=== PATIENT | female | born 1950 | race Caucasian/White ===

== ENCOUNTER → 2019-01-25 | Day surgery (SDC) | payer MEDICARE, BC ==
[~2019-01-25] MED LIST: ATOR20TA58 PO; CELE200C PO; CHOL10003 PO; ESOM40CA PO; IV RINGERS,LACTATED 1000ML 1,000 ML IV SCH; OXYC1TAB15 PO; Oxycodone Hcl/Acetaminophen PO; PROPOFOL 20 ML IV ONE; SIMV20TA3 PO; WARF-78 PO; Warfarin Sodium MC
[2019-01-25 08:57] VITALS: BP 107/59
--- NOTE | 2019-01-28 14:06 | PATHOLOGY ---
[facility] Accession Number: [id number] . 01 Material submitted: . esophagus - DISTAL ESOPHAGUS. Modifiers: distal . 01 Clinical history: . Perez's esophagus, rule out dysphagia . 02 Diagnosis: Esophageal biopsies, distal esophagus: - Segments of hyperplastic squamous esophageal mucosa and esophagogastric mucosa showing chronic inflammation, consistent with reflux changes. (JPM:pastora; 01/28/2019) QMS/01/28/2019 . 02 Comment: Sections of the distal esophageal biopsy reveal segments of hyperplastic squamous esophageal mucosa and esophagastric mucosa showing moderate chronic inflammation. The findings are consistent with reflux changes. There is no evidence of Perez's change, dysplasia, or malignancy. (JPM:pastora; 01/28/2019) . 02 Electronically signed: . Pernell Boles MD, Pathologist NPI- [id number] . 01 Gross description: . The specimen is received in formalin, labeled "Force, Nallely, distal esophagus", are few faulkner-crandall, soft tissue fragments measuring 0.5 x 0.5 x 0.1 cm in aggregate, entirely submitted in A1. (SWS; 01/25/2019) . . SHS/SHS . 02 Pathologist provided ICD-10: K20.9 . 02 CPT . 031361 Specimen Comment: A courtesy copy of this report has been sent to Specimen Comment: [phone]. Specimen Comment: Report sent to DR FIELD Specimen Comment: A duplicate report has been generated due to demographic updates. Performed at: 01 [facility] [address], [place], [place] [id number] MD Keith Chamorro MD Phone: [phone] Performed at: [address] [facility] [address], [place] [id number] MD Pernell Boles MD Phone: [phone]
== END | disposition home or self-care (01) ==
LOC: SURG 07:32
PROVIDERS: ATTEND Internal Medicine Gastroenterology
DX: K22.70 Barrett's esophagus without dysplasia (principal); E78.00 Pure hypercholesterolemia, unspecified; K21.0 Gastro-esophageal reflux disease with esophagitis; M19.90 Unspecified osteoarthritis, unspecified site; Z87.891 Personal history of nicotine dependence; Z79.899 Other long term (current) drug therapy; Z90.710 Acquired absence of both cervix and uterus; Z98.890 Other specified postprocedural states; Z98.51 Tubal ligation status
CPT/HCPCS: 43239; 88305; J2704